=== PATIENT | male | born 1985 | race Caucasian/White ===

== ENCOUNTER 2021-07-05 23:34 | Emergency (ER) | payer BC ==
[~2021-07-05] VITALS: Ht 177.8 cm; Wt 100.0 kg
[2021-07-05 23:44] VITALS: TEMP 99.4
[2021-07-06 00:17] LABS: BASO % 0.2 % (0.0-2.0); EOS % 0.1 % (0-4.0); GRAN # 6.5 (1.4-6.5); HEMATOCRIT 44.2 % (42.0-52.0); HEMOGLOBIN 15.3 g/dl (13.5-18.0); LYMPH # 0.8 (1.2-3.4); LYMPH % 10.2 % (20.0-51.0); MEAN CELL VOLUME 81 fl (80.0-100.0); MEAN CORPUSCULAR HEMOGLOBIN 28 pg (27.0-31.0); MEAN CORPUSCULAR HGB CONC 35 g/dl (33.0-37.0); MEAN PLATELET VOLUME 10.3 fl (7.4-10.4); MONO # 0.6 (0.1-0.6); MONO % 7.9 % (1.7-9.3); PLATELET COUNT 203 K/mm3 (130-400); RED BLOOD COUNT 5.45 M/mm3 (4.20-5.60); REDCELL DISTRIBUTION WIDTH-CV 13.1 % (11.5-14.5)
[2021-07-06 00:23] LABS: ALBUMIN 4.6 gm/dL (3.5-5.0); BILIRUBIN,TOTAL 0.7 mg/dL (0.0-1.0); CALCIUM 9.3 mg/dL (8.4-10.2); CREATININE, serum 0.69 (0.66-1.25); POTASSIUM 3.8 mmol/L (3.4-5.0); TOTAL PROTEIN 8.1 gm/dL (6.4-8.2)
[2021-07-06] MEDS ORDERED: ZOFRAN ODT4 MG PO (03:21)
[2021-07-06 04:00] VITALS: BP 154/64; PULSE 62
[2021-07-06] MEDS ORDERED: GLUCOPHAGE500 MG/TAB PO (14:37)
[2021-07-06] MEDS ORDERED: WELLBUTRIN SR150 M1 PO (14:38)
[2021-07-06] MEDS ORDERED: ZOLOFT 100MG100 MG PO (14:38)
[2021-07-06] MEDS ORDERED: PRINIVIL2.5 MG PO (14:39)
[2021-07-06] MEDS ORDERED: PRILOSEC 20MG20 MG PO (14:39)
[2021-07-06] MEDS ORDERED: OZEMPIC1 MG/0.75 SQ (14:40)
== END 2021-07-06 04:00 | disposition home or self-care (01) ==
LOC: COL.ER 23:34
PROVIDERS: Student in an Organized Health Care Education/Training Program
DX: U07.1 COVID-19 (principal); E11.9 Type 2 diabetes mellitus without complications
CPT/HCPCS: J1885; J2405; J7030

== ENCOUNTER 2021-07-06 13:29 | Outpatient (CLI) | payer BC ==
[~2021-07-06 13:29] MED LIST: ZOFRAN ODT4 MG PO
[2021-07-06 13:55] VITALS: BP 125/78; PULSE 105
[2021-07-06 14:10] VITALS: BP 119/76; PULSE 111
[2021-07-06 14:25] VITALS: BP 117/68; PULSE 111
[2021-07-06] MEDS ORDERED: GLUCOPHAGE500 MG/TAB PO (14:37)
[2021-07-06] MEDS ORDERED: ZOLOFT 100MG100 MG PO (14:38)
[2021-07-06] MEDS ORDERED: WELLBUTRIN SR150 M1 PO (14:38)
[2021-07-06] MEDS ORDERED: PRINIVIL2.5 MG PO (14:39)
[2021-07-06] MEDS ORDERED: PRILOSEC 20MG20 MG PO (14:39)
[2021-07-06] MEDS ORDERED: OZEMPIC1 MG/0.75 SQ (14:40)
[2021-07-06 14:45] VITALS: BP 121/73; PULSE 109
== END 2021-07-06 15:18 | disposition home or self-care (01) ==
LOC: EUO 13:29
DX: U07.1 COVID-19 (principal); E11.9 Type 2 diabetes mellitus without complications; E66.9 Obesity, unspecified
CPT/HCPCS: Q0244